=== PATIENT | female | born 1955 | race Caucasian/White ===

== ENCOUNTER 2017-03-15 08:00 | Outpatient (CLI) | payer OTHER | END 2017-03-15 23:59 | disposition home or self-care (01) | LOC: LAB.R 08:00 | PROVIDERS: ATTEND Surgery | DX: R19.4 Change in bowel habit (principal) | CPT/HCPCS: 82270 ==

== ENCOUNTER 2017-04-01 11:16 | Day surgery (SDC) | payer OTHER ==
[2017-04-01] MEDS ORDERED: LACTATED RINGERS 1,000 ML IV ONE (11:33)
[2017-04-01] MEDS ORDERED: fentaNYL 100 MCG/2 ML VIAL IVP ONE (12:58)
[2017-04-01] MEDS ORDERED: MIDAZOLAM 2 MG/2 ML VIAL IVP ONE (12:58)
[2017-04-01 15:04] VITALS: BP 133/74
== END 2017-04-01 11:17 | disposition home or self-care (01) ==
LOC: SDS 11:16
PROVIDERS: ATTEND Surgery
PROC: 0DBM8ZZ Excision of Descending Colon, Via Natural or Artificial Opening Endoscopic (ICD-10-PCS; principal; 2017-04-01 12:30)
DX: R19.4 Change in bowel habit (principal); K63.5 Polyp of colon; K57.30 Diverticulosis of large intestine without perforation or abscess without bleeding; K64.8 Other hemorrhoids; R19.5 Other fecal abnormalities; I10 Essential (primary) hypertension
CPT/HCPCS: 45380; J7120

== ENCOUNTER 2019-03-01 09:32 | Outpatient (CLI) | payer OTHER ==
--- NOTE | 2019-03-03 18:03 | XRAY Report ---
Reason: OSTEOARTHRITIS OF RIGHT HIP JOINT Procedure Date: 03/01/2019 Accession Number: [id number] / [id number] Procedure: XRS - Hip w/Pelvis 2-3V RT CPT Code: FULL RESULT: EXAM: RIGHT HIP AND PELVIS RADIOGRAPHY EXAM DATE: 03/01/2019 09:46 AM HISTORY: OSTEOARTHRITIS OF RIGHT HIP JOINT COMPARISON: 07/18/2014 TECHNIQUE: Single frontal view of the pelvis and frogleg lateral view of the RIGHT hip, 2 views total FINDINGS: The pelvic ring is intact. Mild bilateral SI joint degenerative arthritis. Central pelvic calcification is probably a fibroid. RIGHT Hip: Moderate to severe superior joint space narrowing, worsened since previous. Moderate osteophyte formation noted. Mild lateral subluxation of the femoral head. Contralateral hip: Mild degenerative spurring at the left hip. IMPRESSION: Consistent with moderate to severe osteoarthritis of the right hip, somewhat worsened compared to previous.
== END 2019-03-01 09:33 | disposition home or self-care (01) ==
LOC: DI.S 09:32
PROVIDERS: ATTEND Nurse Practitioner Family
DX: M16.11 Unilateral primary osteoarthritis, right hip (principal)

== ENCOUNTER 2019-04-21 12:09 | Outpatient (CLI) | payer OTHER ==
[2019-04-21] MEDS ORDERED: BUFFERED LIDOCAINE 10 ML SYRINGE ONE (12:22)
[2019-04-21] MEDS ORDERED: IOTHALAMATE MEGLUMINE 50 ML VIAL ONE (12:24)
[2019-04-21] MEDS ORDERED: BUFFERED LIDOCAINE 10 ML SYRINGE IU ONE (15:09)
[2019-04-21] MEDS ORDERED: TRIAMCINOLONE 40 MG/ML VIAL IM ONE (15:09)
[2019-04-21] MEDS ORDERED: IOTHALAMATE MEGLUMINE 50 ML VIAL IVP ONE (15:20)
[2019-04-21] MEDS ORDERED: ROPIVACAINE 0.5% PF 20 ML VIAL SUBQ ONE (16:00)
[2019-04-21] MEDS ORDERED: ROPIVACAINE 0.5% PF 20 ML VIAL SUBQ SCH (16:00)
--- NOTE | 2019-04-21 16:11 | XRAY Report ---
Reason: RT HIP OSTEOARTHRITIS Procedure Date: 04/21/2019 Accession Number: [id number] / [id number] Procedure: FL - Inj/Aspiration Major Joint CPT Code: Final Report FULL RESULT: EXAM: RIGHT HIP STEROID INJECTION WITH FLUOROSCOPIC GUIDANCE EXAM DATE: 04/21/2019 01:45 PM. CLINICAL HISTORY: Right hip osteoarthritis. COMPARISON: None. TECHNIQUE: The risks, benefits, and alternatives of the procedure were discussed with the patient. All questions were answered. Written and verbal consent were obtained. The hip joint was marked under fluoroscopy and prepped and draped in a sterile manner. Local anesthesia was performed with 1% lidocaine. A 22-gauge needle was then inserted into the hip joint, positioning was tested with a small quantity of intravenous contrast. Following confirmation of intraarticular position 4 mL of a solution containing 3 mL of 0.5% bupivacaine and 1 mL of 40 mg Kenalog was then injected. The needle was removed without immediate complication. Other: None. Fluoroscopy Time: 8 seconds. Number of Images: 5. FINDINGS: Bones and Joints: No fracture or subluxation. Injection: Fluoroscopic images demonstrate needle placement and contrast in the hip joint. IMPRESSION: Successful fluoroscopically guided steroid injection of the hip. RADIA
== END 2019-04-21 12:10 | disposition home or self-care (01) ==
LOC: DI 12:09
PROVIDERS: ATTEND Orthopaedic Surgery Sports Medicine
DX: M16.11 Unilateral primary osteoarthritis, right hip (principal)
CPT/HCPCS: 20610; J2795; Q9961

== ENCOUNTER 2019-06-19 14:51 | Outpatient (CLI) | payer SELFPAY ==
--- NOTE | 2019-06-21 10:21 | Mammography Report ---
Reason: ROUTINE MAMMO Procedure Date: 06/19/2019 Accession Number: [id number] / [id number] Procedure: MGS - Screening Mammo Dig Bilat CPT Code: Final Report FULL RESULT: EXAM: Screening Mammo Dig Bilat DATE: 06/19/2019 3:17 PM CLINICAL HISTORY: The patient is an asymptomatic 63-year-old female. No reported personal or family history of breast cancer. TECHNIQUE: (B) - Bilateral CC and MLO views were obtained. COMPARISON: 2015 PARENCHYMAL PATTERN: (D) - The breasts demonstrate heterogeneously dense fibroglandular parenchyma bilaterally. FINDINGS: The pattern of nodular asymmetry is stable given positional variation and progressive involution. There are no suspicious masses, calcifications, or areas of distortion. IMPRESSION: Benign findings. BI-RADS category 2. RECOMMENDATION: (ANNUAL) - Recommend routine annual screening mammography. BI-RADS CATEGORY: (2) - Benign Findings. STANDARD QUALIFYING STATEMENTS: 1. This examination was reviewed with the aid of Computer-Aided Detection (CAD). 2. A negative or benign imaging report should not preclude biopsy if clinically suspicious findings are present. 3. Dense breasts may obscure an underlying neoplasm.
== END 2019-06-19 14:52 | disposition home or self-care (01) ==
LOC: DI.S 14:51
PROVIDERS: ATTEND Registered Nurse
DX: Z12.31 Encounter for screening mammogram for malignant neoplasm of breast (principal)
CPT/HCPCS: 77067

== ENCOUNTER 2021-09-30 08:00 | Outpatient (CLI) | payer BC ==
--- NOTE | 2021-10-01 10:27 | XRAY Report ---
PROCEDURE: Shoulder 3 View LT INDICATIONS: Left shoulder pain TECHNIQUE: 3 views of the shoulder were acquired. COMPARISON: None. FINDINGS: Moderate acromioclavicular joint space narrowing and degenerative changes. Mild degenerative changes in the glenohumeral joint. Slightly high riding humeral head. No fracture or dislocation. IMPRESSION: Slightly high riding humeral head could indicate chronic rotator cuff tear. Consider MRI. Moderate acromioclavicular and mild glenohumeral degenerative changes. Reviewed by: Modesto Bowser MD on 10/01/2021 10:25 AM PDT Approved by: Modesto Bowser MD on 10/01/2021 10:25 AM PDT Station ID: [id number]
== END 2021-09-30 23:59 | disposition home or self-care (01) ==
LOC: DI.S 08:00
PROVIDERS: ATTEND Emergency Medicine
DX: M19.012 Primary osteoarthritis, left shoulder (principal); R93.6 Abnormal findings on diagnostic imaging of limbs

== ENCOUNTER 2022-02-23 12:50 | Outpatient (CLI) | payer MEDICARE ==
--- NOTE | 2022-02-23 16:16 | DEXA Report ---
PROCEDURE: Dexa Spine and/or Hip INDICATIONS: POSTMENOPAUSAL TECHNIQUE: Dual energy x-ray absorptiometry (DXA) was performed on a [employer] System. Regions measur ed are the AP Spine, femoral neck, and if needed forearm. COMPARISON: None. FINDINGS: Lumbar Spine: Bone Mineral Density 1.163 g/cm/cm,T score -0.1 Left Hip: Bone Mineral Density 0.999 g/cm/cm,T score -0.1 Left Femoral Neck: Bone Mineral Density 0.921 g/cm/cm, T score -0.8 (T score greater or equal to -1.0: NORMAL) (T score from -1.1 to -2.4: OSTEOPENIA) (T score less than or equal to -2.5 to: OSTEOPOROSIS) Impression: No osteoporosis or osteopenia of the lumbar spine or left hip. Patients with diagnosis of osteoporosis or osteopenia should have regular bone mineral density assess ment. For those eligible for Medicare, routine testing is allowed once every 2 years. Testing frequ ency can be increased for patients who have rapidly progressing disease or for those who are receivin g medical therapy to restore bone mass. Reviewed by: Brianna Mack MD on 02/23/2022 4:15 PM PDT Approved by: Brianna Mack MD on 02/23/2022 4:15 PM PDT Station ID: [id number]
== END 2022-02-23 12:51 | disposition home or self-care (01) ==
LOC: DI 12:50
PROVIDERS: ATTEND Registered Nurse
DX: Z78.0 Asymptomatic menopausal state (principal)

== ENCOUNTER 2022-02-23 12:52 | Outpatient (CLI) | payer MEDICARE ==
--- NOTE | 2022-02-24 10:21 | Mammography Report ---
BILATERAL DIGITAL SCREENING MAMMOGRAM 3D/2D: 02/23/2022 CLINICAL: Routine screening. Comparison is made to exams dated: 06/19/2019 mammogram, 05/03/2015 mammogram, and 07/18/2014 mammogram - [facility]. Both breasts are almost entirely fatty (category a/<25% glandular tissue). No significant masses, calcifications, or other findings are seen in either breast. There has been no significant interval change. IMPRESSION: NEGATIVE There is no mammographic evidence of malignancy. A 1 year screening mammogram is recommended. Based on the Tyrer Cuzick model (a risk assessment model) the patients lifetime risk is 5.6% and her 10 year risk is 2.7%. According to the ACR, ACS, and NCCN guidelines, an annual breast MRI exam mary g with mammogram is recommended if the patients lifetime risk is 20% or greater. This exam was interpreted at Station ID: [id number]. NOTE: For mammograms, a report in lay terms will be sent to the patient. Approximately 15% of breast malignancies will not be visualized mammographically. In the management of a palpable breast mass, a negative mammogram must not discourage biopsy of a clinically suspicious lesion. Electronically Signed By: Catrachito Valle acr/penrad:02/23/2022 16:42:09 ACR BI-RADS Category 1: Negative 3341F PARENCHYMAL PATTERN: (F) - The breast(s) demonstrate(s) diffuse fatty replacement. BI-RADS CATEGORY: (1) - 1 RECOMMENDATION: (ANNUAL) - Recommend routine annual screening mammography. [id number] 1 year screening LATERALITY: (B)
== END 2022-02-23 12:53 | disposition home or self-care (01) ==
LOC: DI 12:52
PROVIDERS: ATTEND Registered Nurse
DX: Z12.31 Encounter for screening mammogram for malignant neoplasm of breast (principal)

== ENCOUNTER 2023-03-15 12:08 | Outpatient (CLI) | payer MEDICARE ==
--- NOTE | 2023-03-15 14:52 | XRAY Report ---
PROCEDURE: Calcaneus RT INDICATIONS: RIGHT ACHILLES TENDONITIS TECHNIQUE: Two views of the calcaneus were acquired. COMPARISON: None FINDINGS: Bones: No fractures or dislocations. No suspicious bony lesions. Calcaneal enthesophyte is seen at the Achilles tendon insertion. Soft tissues: No suspicious calcifications. Achilles tendon appears normal. IMPRESSION: Calcaneal enthesophyte at the Achilles tendon insertion. Reviewed by: Catrachito Valle on 03/15/2023 2:51 PM PDT Approved by: Catrachito Valle on 03/15/2023 2:51 PM PDT Station ID: [id number]
== END 2023-03-15 12:09 | disposition home or self-care (01) ==
LOC: DI.S 12:08
PROVIDERS: ATTEND Registered Nurse
DX: M76.61 Achilles tendinitis, right leg (principal); M77.31 Calcaneal spur, right foot

== ENCOUNTER 2024-01-11 14:10 | Outpatient (CLI) | payer MEDICARE ==
--- NOTE | 2024-01-12 10:51 | Mammography Report ---
BILATERAL DIGITAL SCREENING MAMMOGRAM 3D/2D: 01/11/2024 CLINICAL: Routine screening. Comparison is made to exams dated: 02/23/2022 mammogram, 06/19/2019 mammogram, and 05/03/2015 mammogram - [facility]. There are scattered areas of fibroglandular density in both breasts (category b / 25%-50% glandular t issue). No significant masses, calcifications, or other findings are seen in either breast. There has been no significant interval change. IMPRESSION: NEGATIVE There is no mammographic evidence of malignancy. A 1 year screening mammogram is recommended. Based on the Tyrer Cuzick model (a risk assessment model) the patient's lifetime risk is 7.7% and her 10 year risk is 4.0%. According to the ACR, ACS, and NCCN guidelines, an annual breast MRI exam mary g with mammogram is recommended if the patient's lifetime risk is 20% or greater. This exam was interpreted at Station ID: [id number]. NOTE: For mammograms, a report in lay terms will be sent to the patient. Approximately 15% of breast malignancies will not be visualized mammographically. In the management of a palpable breast mass, a negative mammogram must not discourage biopsy of a clinically suspicious lesion. Electronically Signed By: Chastity patel/tesha:01/11/2024 18:05:29 letter sent: No_Letter ACR BI-RADS Category 1: Negative 3341F PARENCHYMAL PATTERN: (A) - The breast(s) demonstrate(s) scattered fibroglandular densities. BI-RADS CATEGORY: (1) - 1 RECOMMENDATION: (ANNUAL) - Recommend routine annual screening mammography. [id number] 1 year screening LATERALITY: (B)
== END 2024-01-11 14:11 | disposition home or self-care (01) ==
LOC: DI.S 14:10
DX: Z12.31 Encounter for screening mammogram for malignant neoplasm of breast (principal); R92.323 Mammographic fibroglandular density, bilateral breasts